=== PATIENT | male | born 1955 | race Caucasian/White ===

== ENCOUNTER 2016-09-26 13:50 | Outpatient (CLI) | payer BC ==
[2016-09-26 14:19] LABS: Basophils % (Auto) 1.8 % (0.0-1.8); Eosinophils % (Auto) 5.1 % (0.0-4.3); Hematocrit 40.9 % (35.5-45.6); Hemoglobin 13.7 gm/dl (11.8-15.2); Mean Corpuscular HGB Conc 34 % (32-34); Mean Corpuscular Hemoglobin 31 pg (28-32); Mean Corpuscular Volume 92 fl (84-94); Platelet Count 229 K/mm3 (140-440); Red Blood Count 4.45 M/mm3 (3.65-5.03); Red Cell Distribution Width 13.2 % (13.2-15.2); White Blood Count 5.5 K/mm3 (4.5-11.0)
[2016-09-26 14:48] LABS: Alanine Aminotransferase 15 units/L (7-56); Albumin 4.3 g/dL (3.9-5); Albumin/Globulin Ratio 1.7 %; Alkaline Phosphatase 56 units/L (35-129); Anion Gap 19 mmol/L; BUN/Creatinine Ratio 17.14; Blood Urea Nitrogen 12 mg/dL (9-20); Calcium 9.5 mg/dL (8.4-10.2); Carbon Dioxide 26 mmol/L (22-30); Chloride 98.5 mmol/L (98-107); Cholesterol 145 mg/dL (50-199); Glucose 117 mg/dL (75-100); HDL Cholesterol 46 mg/dL (40-59); LDL Cholesterol,Direct 71 mg/dL (50-130); Potassium 4.1 mmol/L (3.6-5.0); Sodium 139 mmol/L (137-145); Total Protein 6.9 g/dL (6.3-8.2); Triglycerides 140 mg/dL (2-149)
[2016-09-30 06:05] LABS: Vitamin D, 25-OH, Total 18 ng/mL (30-100)
== END 2016-09-26 13:51 | disposition home or self-care (01) ==
LOC: LAB 13:50
PROVIDERS: ATTEND Internal Medicine
DX: E11.9 Type 2 diabetes mellitus without complications (principal); I10 Essential (primary) hypertension; E78.2 Mixed hyperlipidemia; E55.9 Vitamin D deficiency, unspecified
CPT/HCPCS: 36415; 80053; 80061; 82306; 83036; 85025

== ENCOUNTER 2017-10-22 08:45 | Outpatient (CLI) | payer BC ==
[2017-10-22 09:08] LABS: Basophils # (Auto) 0.1 K/mm3 (0.0-0.1); Basophils % (Auto) 1.4 % (0.0-1.8); Eosinophils # (Auto) 0.3 K/mm3 (0.0-0.4); Eosinophils % (Auto) 4.9 % (0.0-4.3); Hematocrit 41.5 % (35.5-45.6); Hemoglobin 13.9 gm/dl (11.8-15.2); Lymphocytes # (Auto) 2.6 K/mm3 (1.2-5.4); Mean Corpuscular HGB Conc 33 % (32-34); Mean Corpuscular Hemoglobin 31 pg (28-32); Mean Corpuscular Volume 91 fl (84-94); Monocytes # (Auto) 0.5 K/mm3 (0.0-0.8); Monocytes % (Auto) 7.7 % (0.0-7.3); Platelet Count 256 K/mm3 (140-440); Red Blood Count 4.55 M/mm3 (3.65-5.03); Red Cell Distribution Width 12.6 % (13.2-15.2)
[2017-10-22 09:25] LABS: Alanine Aminotransferase 16 units/L (7-56); Albumin 4.1 g/dL (3.9-5); BUN/Creatinine Ratio 18; Blood Urea Nitrogen 14 mg/dL (9-20); Calcium 9.1 mg/dL (8.4-10.2); Chol/HDL Ratio 2.65 %; HDL Cholesterol 40 mg/dL (40-59); Hemolysis Index 5; LDL Cholesterol,Direct 55 mg/dL (50-130)
[2017-10-22 20:18] LABS: Creatinine,Urine 38.7 mg/dL (0.1-20.0)
== END 2017-10-22 08:46 | disposition home or self-care (01) ==
LOC: LAB 08:45
PROVIDERS: ATTEND Internal Medicine
DX: I10 Essential (primary) hypertension (principal); E78.2 Mixed hyperlipidemia; E55.9 Vitamin D deficiency, unspecified; E11.9 Type 2 diabetes mellitus without complications
CPT/HCPCS: 36415; 80053; 80061; 82043; 82306; 85025

== ENCOUNTER 2018-04-07 16:04 | Outpatient (CLI) | payer BC ==
[2018-04-07 16:51] LABS: Basophils # (Auto) 0.1 K/mm3 (0.0-0.1); Basophils % (Auto) 1.3 % (0.0-1.8); Eosinophils # (Auto) 0.2 K/mm3 (0.0-0.4); Eosinophils % (Auto) 4.1 % (0.0-4.3); Hematocrit 41.3 % (35.5-45.6); Hemoglobin 13.8 gm/dl (11.8-15.2); Lymphocytes # (Auto) 1.5 K/mm3 (1.2-5.4); Lymphocytes % (Auto) 29.3 % (13.4-35.0); Mean Corpuscular HGB Conc 34 % (32-34); Mean Corpuscular Volume 91 fl (84-94); Monocytes # (Auto) 0.4 K/mm3 (0.0-0.8); Monocytes % (Auto) 7.8 % (0.0-7.3); Platelet Count 266 K/mm3 (140-440); Red Blood Count 4.51 M/mm3 (3.65-5.03); Red Cell Distribution Width 12.9 % (13.2-15.2)
[2018-04-07 17:13] LABS: Alanine Aminotransferase 19 units/L (7-56); Albumin 4.3 g/dL (3.9-5); BUN/Creatinine Ratio 14; Blood Urea Nitrogen 10 mg/dL (9-20); Chol/HDL Ratio 2.55 %; HDL Cholesterol 45 mg/dL (40-59); Hemolysis Index 6; LDL Cholesterol,Direct 66 mg/dL (50-130)
== END 2018-04-07 16:05 | disposition home or self-care (01) ==
LOC: LAB 16:04
PROVIDERS: ATTEND Internal Medicine
DX: Z12.11 Encounter for screening for malignant neoplasm of colon (principal); Z12.5 Encounter for screening for malignant neoplasm of prostate; E11.9 Type 2 diabetes mellitus without complications; K11.1 Hypertrophy of salivary gland
CPT/HCPCS: 36415; 80053; 80061; 82164; 83036; 84153; 85025; 86235

== ENCOUNTER 2018-09-30 16:38 | Outpatient (CLI) | payer BC, MEDICARE ==
[2018-09-30 17:28] LABS: Basophils # (Auto) 0.1 K/mm3 (0.0-0.1); Basophils % (Auto) 1.4 % (0.0-1.8); Eosinophils # (Auto) 0.1 K/mm3 (0.0-0.4); Eosinophils % (Auto) 2.5 % (0.0-4.3); Hematocrit 42.5 % (35.5-45.6); Hemoglobin 14.4 gm/dl (11.8-15.2); Lymphocytes # (Auto) 1.8 K/mm3 (1.2-5.4); Lymphocytes % (Auto) 33.4 % (13.4-35.0); Mean Corpuscular HGB Conc 34 % (32-34); Mean Corpuscular Volume 92 fl (84-94); Monocytes # (Auto) 0.4 K/mm3 (0.0-0.8); Monocytes % (Auto) 6.8 % (0.0-7.3); Platelet Count 246 K/mm3 (140-440); Red Blood Count 4.61 M/mm3 (3.65-5.03)
[2018-09-30 17:35] LABS: Creatinine,Urine 101.4 mg/dL (0.1-20.0)
[2018-09-30 17:40] LABS: Microalbumin/Creatinine Ratio 11.8 ug/mg
[2018-09-30 17:44] LABS: Alanine Aminotransferase 16 units/L (7-56); Albumin 4.4 g/dL (3.9-5); BUN/Creatinine Ratio 15; Blood Urea Nitrogen 12 mg/dL (9-20); Calcium 8.8 mg/dL (8.4-10.2); Chol/HDL Ratio 2.81 %; HDL Cholesterol 44 mg/dL (40-59); Hemolysis Index 9; LDL Cholesterol,Direct 71 mg/dL (50-130)
== END 2018-09-30 16:39 | disposition home or self-care (01) ==
LOC: LAB 16:38
PROVIDERS: ATTEND Internal Medicine
DX: I10 Essential (primary) hypertension (principal); E78.2 Mixed hyperlipidemia; E11.9 Type 2 diabetes mellitus without complications
CPT/HCPCS: 36415; 80053; 80061; 82043; 85025

== ENCOUNTER 2019-03-18 10:58 | Outpatient (CLI) | payer BC, MEDICARE ==
[2019-03-18 11:42] LABS: Alanine Aminotransferase 22 units/L (7-56); Albumin 4.5 g/dL (3.9-5); BUN/Creatinine Ratio 16; Blood Urea Nitrogen 13 mg/dL (9-20); Chol/HDL Ratio 2.65 %; HDL Cholesterol 38 mg/dL (40-59); Hemolysis Index 4; LDL Cholesterol,Direct 58 mg/dL (50-130)
== END 2019-03-18 10:59 | disposition home or self-care (01) ==
LOC: LAB 10:58
PROVIDERS: ATTEND Internal Medicine
DX: I10 Essential (primary) hypertension (principal); E78.2 Mixed hyperlipidemia
CPT/HCPCS: 36415; 80053; 80061

== ENCOUNTER 2019-07-19 22:06 | Emergency (ER) | payer BC, MEDICARE ==
--- NOTE | 2019-07-19 22:30 | Emergency Department Report ---
Blank Doc - Documentation Documentation: 64-year-old male that presents with cough and sore throat. Tachycardia in tra iage. Positive exposure to COVID-19. Paietn received mask. This initial assessment/diagnostic orders/clinical plan/treatment(s) is/are subject to change based on patient's health status, clinical progression and re- assessment by fellow clinical providers in the ED. Further treatment and workup at subsequent clinical providers discretion. Patient/guardians urged not to elope from the ED as their condition may be serious if not clinically assessed and managed. Initial orders include: 1- Patient sent to [facility] for further evaluation and treatment 2- CXR
--- NOTE | 2019-07-19 23:21 | XRay Report ---
CHEST 2 VIEWS INDICATION / CLINICAL INFORMATION: cough. COMPARISON: 05/22/2007 FINDINGS: SUPPORT DEVICES: None. HEART / MEDIASTINUM: No significant abnormality. LUNGS / PLEURA: No significant pulmonary or pleural abnormality. No pneumothorax. ADDITIONAL FINDINGS: No significant additional findings. IMPRESSION: No significant abnormality or change from 05/22/2007 Signer Name: Stanton Workman MD FACR Signed: 07/19/2019 11:17 PM Workstation Name: [id number]
--- NOTE | 2019-07-19 23:52 | Emergency Department Report ---
Minor Respiratory - HPI Chief Complaint: Upper Respiratory Infection Stated Complaint: EXPOSURE Time Seen by Provider: 07/19/19 22:29 Duration: 1 Day Severity: mild Minor Respiratory: Yes Sore Throat, Yes Cough, Yes Sick Contacts, No Rhinorrhea, No Able to Tolerate Fluids, No Ear Pain, No Hemoptysis, No Chest Pain, No Shortness of Breath, No Fever Other History: 64-year-old [place] presents to the emergency room complaining of sore throat and cough x1 day. Patient reports a known exposure to covid-19. Patient denies any fever chills no nausea no vomiting no diarrhea no abdominal pain. Patient states is been taken [id number] cough medication with DM and feels that has rates his blood pressure. Patient has a past medical history of diabetes and hypertension. ED Review of Systems ROS: Stated complaint: EXPOSURE Other details as noted in HPI Comment: All other systems reviewed and negative ED Past Medical Hx - Past Medical History Previous Medical History?: No - Social History Smoking Status: Never Smoker Substance Use Type: None - Medications Home Medications: Home Medications Medication Instructions Recorded Confirmed Last Taken Type Adult Low Dose Aspirin EC 81 mg PO DAILY 04/01/18 04/02/18 03/31/18 History Losartan-Hctz 50-12.5 mg Tab 1 tab PO DAILY 04/01/18 04/02/18 04/02/18 History One A Day Dha Pack 1 tab PO DAILY 04/01/18 04/01/18 Unknown History Simvastatin 20 mg PO DAILY 04/01/18 04/01/18 Unknown History Vitamin C 500 mg PO DAILY 04/01/18 04/01/18 Unknown History Vitamin D (Nf) 50 mg PO DAILY 04/01/18 04/01/18 Unknown History metFORMIN 500 mg PO BID 04/01/18 04/02/18 03/31/18 History Promethazine /Codeine 5 ml PO Q6H PRN #100 c 07/19/19 Unknown Rx [Phenergan/Codeine 6.25-10 mg/5Ml] Minor Respiratory Exam - Exam General: Vital signs noted. No distress. Alert and acting appropriately. HEENT: Yes Moist Mucous Membranes, No Pharyngeal Erythema, No Pharyngeal Exudates, No Rhinorrhea, No Conjuctival Injection, No Frontal Tenderness, No Maxillary Tenderness Ear: Neither TM Bulge, Neither TM Erythema, Neither EAC Pain, Neither EAC Discharge Neck: Yes Supple, No Adenopathy Lungs: Yes Good Air Exchange, No Wheezes, No Ronchi, No Stridor, No Cough, No Labored Respirations, No Retractions, No Use of Accessory Muscles, No Other Abnormal Lung Sounds Heart: Yes Regular, No Murmur Abdomen: Yes Normal Bowel Sounds, No Tenderness, No Peritoneal Signs Skin: No Rash, No Edema Neurologic: Alert and oriented, no deficits. Musculoskeletal: Unremarkable. ED Course Vital Signs 07/19/19 22:32 Temperature 98.2 F Pulse Rate 108 H Respiratory 18 Rate Blood Pressure 146/106 O2 Sat by Pulse 100 Oximetry ED Medical Decision Making - Radiology Data Radiology results: report reviewed Patient: BEN PAREDES MR#: [id number] : 1955 Acct:[id number] Age/Sex: 64 / M ADM Date: 07/19/19 Loc: ED Attending Dr: Ordering Physician: COHLO ROBINS NP Date of Service: 07/19/19 Procedure(s): XR chest routine 2V Accession Number(s): [id number] cc: CHOLO ROBINS NP Fluoro Time In Minutes: CHEST 2 VIEWS INDICATION / CLINICAL INFORMATION: cough. COMPARISON: 05/22/2007 FINDINGS: SUPPORT DEVICES: None. HEART / MEDIASTINUM: No significant abnormality. LUNGS / PLEURA: No significant pulmonary or pleural abnormality. No pneumothorax. ADDITIONAL FINDINGS: No significant additional findings. IMPRESSION: No significant abnormality or change from 05/22/2007 Signer Name: Cholo Workman MD FACR Signed: 07/19/2019 11:17 PM Workstation Name: [id number] Transcribed By: MS Dictated By: Cholo Workman MD Electronically Authenticated By: Cholo Workman MD Signed Date/Time: 07/19/192316 DD/ 15 TD/TT: - Medical Decision Making 64-year-old [place] presents to the emergency room complaining of sore throat and cough x1 day. Patient reports a known exposure to covid-19. Patient denies any fever chills no nausea no vomiting no diarrhea no abdominal pain. Patient states is been taken [id number] cough medication with DM and feels that has rates his blood pressure. Patient has a past medical history of diabetes and hypertension. Chest x-ray shows no acute abnormalities. Patient is afebrile. Chest exam is clear. Discussed with patient that we will place him on a 14-day quarantine. Patient needs to contact his primary care provider to inform them. Discussed with patient he can call the [facility] health department. Discussed with patient to return back to the emergency room if he has worsening symptoms any shortness of breath high fever. Patient verbalized understanding Critical care attestation.: If time is entered above; I have spent that time in minutes in the direct care of this critically ill patient, excluding procedure time. ED Disposition Clinical Impression: Cough, Sore throat, Contact with and (suspected) exposure to other communicable diseases Disposition: DC-01 TO HOME OR SELFCARE Is pt being admited?: No Does the pt Need Aspirin: No Condition: Stable Instructions: Acute Cough (ED) Additional Instructions: Chest x-ray was negative for any acute findings. I recommend a 14-day quarantine. Please take cough medication as needed. You can take Tylenol for pain. Increase your fluid intake. Contact [facility] department at [phone]. Please contact your primary care provider. Return back to the emergency room with any worsening symptoms. Prescriptions: Promethazine /Codeine [Phenergan/Codeine 6.25-10 mg/5Ml] 5 ml PO Q6H PRN #100 udc PRN Reason: cough Referrals: LIONEL NAVARRO JR, MD [Primary Care Provider] - 3-5 Days Forms: Work/School Release Form(ED)
[2019-07-20 05:17] VITALS: BP 136/82
== END 2019-07-20 00:23 | disposition home or self-care (01) ==
LOC: ED 22:06
DX: J02.9 Acute pharyngitis, unspecified (principal); R05 Cough; Z20.89 Contact with and (suspected) exposure to other communicable diseases; Z79.899 Other long term (current) drug therapy
CPT/HCPCS: 71046

== ENCOUNTER 2019-09-15 14:48 | Outpatient (CLI) | payer BC ==
[2019-09-15 15:24] LABS: Basophils % (Auto) 0.7 % (0.0-1.8); Eosinophils # (Auto) 0.1 K/mm3 (0.0-0.4); Eosinophils % (Auto) 2.2 % (0.0-4.3); Hematocrit 41.3 % (35.5-45.6); Lymphocytes # (Auto) 2.1 K/mm3 (1.2-5.4); Lymphocytes % (Auto) 37.6 % (13.4-35.0); Mean Corpuscular HGB Conc 34 % (32-34); Mean Corpuscular Volume 91 fl (84-94); Monocytes # (Auto) 0.4 K/mm3 (0.0-0.8); Monocytes % (Auto) 7.1 % (0.0-7.3); Platelet Count 263 K/mm3 (140-440); Red Blood Count 4.52 M/mm3 (3.65-5.03)
[2019-09-15 15:36] LABS: Alanine Aminotransferase 17 units/L (7-56); Albumin 4.4 g/dL (3.9-5); BUN/Creatinine Ratio 13; Blood Urea Nitrogen 12 mg/dL (9-20); Calcium 9.3 mg/dL (8.4-10.2); Chol/HDL Ratio 2.62 %; HDL Cholesterol 48 mg/dL (40-59); Hemolysis Index 6; LDL Cholesterol,Direct 71 mg/dL (50-130)
[2019-09-19 15:48] LABS: Vitamin D, 25-OH, D2 <4 ng/mL
== END 2019-09-15 14:49 | disposition home or self-care (01) ==
LOC: LAB 14:48
PROVIDERS: ATTEND Internal Medicine
DX: Z00.00 Encounter for general adult medical examination without abnormal findings (principal); E78.2 Mixed hyperlipidemia; I10 Essential (primary) hypertension; Z12.5 Encounter for screening for malignant neoplasm of prostate
CPT/HCPCS: 36415; 80053; 80061; 82306; 84153; 84443; 85025